=== PATIENT | male | born 1985 | race Caucasian/White ===

== ENCOUNTER → 2022-09-05 12:55 | Outpatient (BNVA) | payer OTHER, SELFPAY | PROVIDERS: Visit Provider Internal Medicine | DX: S60.932A Unspecified superficial injury of left thumb, initial encounter (principal); W11.XXXA Fall on and from ladder, initial encounter | CPT/HCPCS: 99204 ==

== ENCOUNTER → 2022-09-10 15:30 | Outpatient (BNVA) | payer OTHER, SELFPAY | PROVIDERS: Visit Provider Physician Assistant | DX: S60.932A Unspecified superficial injury of left thumb, initial encounter (principal); W11.XXXA Fall on and from ladder, initial encounter | CPT/HCPCS: 99213 ==